=== PATIENT | female | born 1970 | race Caucasian/White ===

== ENCOUNTER 2022-10-09 21:36 | Emergency (ER) | payer SELFPAY ==
[~2022-10-09] VITALS: Ht 160 cm; Wt 90.0 kg
[2022-10-09 21:41] VITALS: O2SAT 98
[2022-10-09] MEDS ORDERED: TETANUS, DIPHTHERIA, PERTUSSIS VAC/PF 0.5ML (>10YR OLD) IM ONE (23:30)
[2022-10-09] MEDS ORDERED: ACETAMINOPHEN 325MG TABLET PO ONE (23:30)
[2022-10-09] MEDS: LIDOCAINE 5% PATCH TOP SCH ×2 (23:55→23:57)
[2022-10-10 00:59] VITALS: BP 170/95
[2022-10-10] MEDS ORDERED: NAPR-1129 MT (00:59)
[2022-10-10] MEDS: LIDOCAINE 5% PATCH TOP SCH (00:59)
[2022-10-10 01:19] VITALS: PULSE 83; RESP 16; TEMP 98.3
== END 2022-10-10 01:21 | disposition home or self-care (01) ==
LOC: ER 21:46
DX: S00.11XA Contusion of right eyelid and periocular area, initial encounter (principal); G89.11 Acute pain due to trauma; V89.2XXA Person injured in unspecified motor-vehicle accident, traffic, initial encounter; Y93.89 Activity, other specified; Y92.89 Other specified places as the place of occurrence of the external cause; Y99.8 Other external cause status
CPT/HCPCS: 70486; 81025; 90471; 90715; 99285

== ENCOUNTER 2022-10-12 14:22 | Emergency (ER) | payer MEDICAID ==
[~2022-10-12] VITALS: Ht 167.6 cm; Wt 98.0 kg
[~2022-10-12 14:22] MED LIST: NAPR-1129 MT
[2022-10-12 14:34] VITALS: O2SAT 99
[2022-10-12] MEDS ORDERED: SODIUM CHLORIDE 0.9% 1,000 ML IV ONE (20:00)
[2022-10-12 20:49] LABS: CHLORIDE 106 mEq/L (98-107); INDEX HEMOLYSI 1 (1-3); INDEX ICTERIC 1 (1-4); INDEX LIPEMIC 1 (1-3); POTASSIUM 4.2 mEq/L (3.5-5.1); SODIUM 139 mEq/L (136-145)
[2022-10-12 20:56] LABS: EOSINOPHILS % 3.4 % (0.0-5.0); HEMATOCRIT. 43.5 % (36.0-48.0); HEMOGLOBIN. 14.3 g/dL (12.0-16.0); LYMPHOCYTES % 27.1 % (20.0-50.0); MEAN CORPUSCULAR HEMOGLOBIN 28.8 pg (28.0-32.0); MEAN CORPUSCULAR HGB CONC 32.8 g/dL (31.0-37.0); MEAN CORPUSCULAR VOLUME 87.7 fL (81.0-99.0); MEAN PLATELET VOLUME 8.3 fl (7.4-10.4); MONOCYTES % 7.3 % (2.0-8.0); NEUTROPHILS % 61.2 % (40.0-76.0); PLATELET 255 x1000/uL (130-400); RED BLOOD CELL COUNT 4.96 mill/uL (4.2-5.4); WHITE BLOOD COUNT 7.5 x1000/uL (4.5-11.0)
[2022-10-12 20:59] LABS: ALANINE AMINOTRANSFERASE 30 IU/L (13-61); ASPARTATE AMINOTRANSFERASE 22 IU/L (15-37); BILIRUBIN TOTAL 0.6 mg/dL (0.1-1.0); CARBON DIOXIDE 28 mEq/L (21-32); CREATININE 0.8 mg/dL (0.6-1.3); GLUCOSE 93 mg/dL (70-105); PROTEIN TOTAL 7.7 g/dL (6.0-8.3); UREA NITROGEN BLOOD 13 mg/dL (7-21)
[2022-10-12 22:22] VITALS: BP 152/96; PULSE 66; RESP 18; TEMP 98
== END 2022-10-12 23:30 | disposition short-term general hospital (02) ==
LOC: ER 14:37
DX: H33.21 Serous retinal detachment, right eye (principal)
CPT/HCPCS: 99283; 96360; 80053; 85025; 86850; 86900; 86901; 36415; J7030

== ENCOUNTER 2022-10-21 18:35 | Emergency (ER) | payer MEDICAID ==
[~2022-10-21] VITALS: Ht 175.3 cm; Wt 97.0 kg
[2022-10-21 19:05] VITALS: BP 133/86; PULSE 76; RESP 17; TEMP 98.7; O2SAT 99
[2022-10-21] MEDS ORDERED: BO1 TP (22:08)
[2022-10-21] MEDS ORDERED: BACITRACIN ZINC OINT UDPKT TOP ONE (22:15)
== END 2022-10-21 21:49 | disposition home or self-care (01) ==
LOC: ER 18:35
DX: S01.13 Puncture wound without foreign body of eyelid and periocular area (principal); V89.2XXD Person injured in unspecified motor-vehicle accident, traffic, subsequent encounter
CPT/HCPCS: 99283; Z7610 ×2